=== PATIENT | male | born 1995 | race Caucasian/White ===

== ENCOUNTER 2021-03-22 14:16 | Emergency (ER) | payer OTHER ==
[~2021-03-22] VITALS: Ht 170.2 cm; Wt 57.2 kg
[2021-03-22 14:30] VITALS: BP_SYST 144
--- NOTE | 2021-03-22 14:35 | NUR ---
Pt triaged and placed in room 2 awaiting evaluation.
--- NOTE | 2021-03-22 14:36 | NUR ---
First contact with patient. Patient awake, laert and oriented x 3. Reports getting bit by a cat; reporting laceration to right hand with some bleeding. Area dressed upon arrival. Reports minimal pain to area. No PMH. Awaiting MD evaluation.
--- NOTE | 2021-03-22 14:37 | NUR ---
Dr Parks to bedside for evaluation
[2021-03-22] MEDS ORDERED: DIPH-TET-PERTUS Vaccine 0.5 ML VIAL (ADACEL) I.M. ONE (14:45)
[2021-03-22] MEDS ORDERED: BACITRACIN 1 GM OINT TP ONE (14:45)
[2021-03-22] MEDS ORDERED: LIDOCAINE 1% 10 MG/ML, 20 ML MDV SUBCUT ONE (14:45)
--- NOTE | 2021-03-22 14:55 | NUR ---
Dr Parks to bedside for lac repair
[2021-03-22] MEDS ORDERED: IBUP-1969 PO (15:16)
[2021-03-22] MEDS ORDERED: AMOX-423 PO (15:16)
--- NOTE | 2021-03-22 15:35 | NUR ---
Patient given written and verbal discharge instructions and verbalizes understanding. ER Dr. Parks discussed with patient the results and treatment provided. Patient in stable condition. ID arm band removed. Rx of Motrin and Amoxiciillin given. Patient educated on pain management and to follow up with PMD. Pain Scale 3/10. Opportunity for questions provided and answered. Medication side effect fact sheet provided.
== END 2021-03-22 15:35 | disposition home or self-care (01) ==
LOC: SED 14:16
DX: S61.431A Puncture wound without foreign body of right hand, initial encounter (principal); Z79.899 Other long term (current) drug therapy; W55.01XA Bitten by cat, initial encounter; Y93.89 Activity, other specified; Y92.89 Other specified places as the place of occurrence of the external cause; Y99.0 Civilian activity done for income or pay
CPT/HCPCS: 12001; 90471; 90715; 99283; J2001